=== PATIENT | female | born 1990 | race Caucasian/White ===

== ENCOUNTER → 2016-11-16 | Outpatient (REF) | LOC: ZLAB.WCH 16:32 | DX: Z02.89 Encounter for other administrative examinations (principal) ==

== ENCOUNTER → 2016-11-19 | Outpatient (CLI) | payer BC | LOC: COL.RAD 13:49 | DX: M25.552 Pain in left hip (principal); Z98.890 Other specified postprocedural states; R93.7 Abnormal findings on diagnostic imaging of other parts of musculoskeletal system; R68.89 Other general symptoms and signs | CPT/HCPCS: A9585; J3301; Q9967 ==

== ENCOUNTER → 2017-05-31 | Outpatient (REF) | LOC: WSOH 16:15 | DX: Z02.89 Encounter for other administrative examinations (principal) ==

== ENCOUNTER → 2019-06-22 | Outpatient (CLI) | payer BC | LOC: COL.RAD 08:00 | DX: M25.551 Pain in right hip (principal) | CPT/HCPCS: J3301; Q9967 ==

== ENCOUNTER 2019-07-20 08:00 | Inpatient (IN) | payer BC ==
[~2019-07-20] VITALS: Ht 175.3 cm; Wt 66.5 kg
--- NOTE | 2019-07-20 14:00 | NUR ---
PATIENT ARRIVED TO ROOM 349 VIA WHEELCHAIR. PATIENT SETTELED INTO ROOM.
[2019-07-20 14:08] VITALS: BP 100/60; PULSE 134; TEMP 99.4
[2019-07-20] MEDS ORDERED: BACTRIM DS 8001 TAB PO (15:02)
[2019-07-20] MEDS ORDERED: CEPHALEXIN500 M1 PO (15:02)
[2019-07-20] MEDS ORDERED: FLEXERIL5 MG PO (15:03)
[2019-07-20] MEDS ORDERED: NEURONTIN300 MG/CAP PO (15:04)
[2019-07-20] MEDS ORDERED: LOVENOX 4040 MG/0.4 SQ (15:04)
[2019-07-20] MEDS ORDERED: MOBIC15 MG PO (15:04)
[2019-07-20] MEDS ORDERED: WELLBUTRIN XL300 M1 PO (15:05)
[2019-07-20] MEDS ORDERED: TYLENOL 500MG500 MG PO (15:05)
[2019-07-20] MEDS ORDERED: ROXICODONE 55 MG/TAB PO (15:06)
[2019-07-20] MEDS ORDERED: MOTEGRITY2 MG PO (15:06)
[2019-07-20] MEDS ORDERED: ZYRTEC 10MG10 MG PO (15:07)
[2019-07-20] MEDS ORDERED: ADDERALL10 MG PO (15:07)
[2019-07-20] MEDS ORDERED: SENNA-LAX8.6 MG PO (15:08)
--- NOTE | 2019-07-20 16:00 | NUR ---
PATIENT ASSESSMENT COMPLETE. LEFT HIP REDDENED, WARM TO THE TOUCH AND SWOLLEN. GAUZE AND TEGADERM DRESSING IN PLACE AND IS CD&I. IV FLUIDS INFUSING TO RIGHT AC IV VIA PUMP. CALL LIGHT WITHIN REACH. FAMILY PRESENT AT THE BEDSIDE. PATIENT DENIES ANY NEEDS AT THIS TIME.
--- NOTE | 2019-07-20 19:30 | NUR ---
Pt. sitting up in bed at this time. Pt. is A&OX3, assessment complete. Pt. had reported SOB at shift change to day shift nurse. Pt. waiting to go to CT scan pending lab results. IV to rt. AC patent, IV fluids infusing per orders. Reddness, swelling, and warmth noted to lt. hip and thigh. Pt. has a dressing to lt. hip/groin area from previous procedure. Dressing is CDI. Pt. denies further needs, at this time. Call light within reach.
[2019-07-20 20:00] VITALS: BP 99/61; PULSE 98; TEMP 98.5
[2019-07-20 20:04] LABS: BASO % 0.5 % (0.0-2.0); EOS # 0.2 (0.0-0.7); EOS % 3.6 % (0-4.0); GRAN # 3.2 (1.4-6.5); GRAN % 54.3 % (42.2-75.2); HEMOGLOBIN 10.2 g/dl (12.5-16.0); LYMPH % 34.1 % (20.0-51.0); MEAN CELL VOLUME 96 fl (80.0-100.0); MEAN CORPUSCULAR HEMOGLOBIN 31 pg (27.0-31.0); MEAN CORPUSCULAR HGB CONC 33 g/dl (33.0-37.0); MEAN PLATELET VOLUME 9.5 fl (7.4-10.4); MONO # 0.4 (0.1-0.6); MONO % 6.8 % (1.7-9.3); PLATELET COUNT 518 K/mm3 (130-400); RED BLOOD COUNT 3.28 M/mm3 (4.10-5.30); REDCELL DISTRIBUTION WIDTH-CV 12.4 % (11.5-14.5)
[2019-07-20 20:08] LABS: PROTHROMBIN TIME 11.2 SECONDS (9.7-12.8)
[2019-07-20 20:11] LABS: PARTIAL THROMBOPLASTIN TIME 31.6 SECONDS (26.0-37.0)
[2019-07-20 20:14] LABS: HEMATOCRIT 31.4 % (37.0-47.0)
[2019-07-20 20:15] LABS: ALANINE AMINOTRANSFERASE 26 U/L (9-52); ALBUMIN 3.9 gm/dL (3.5-5.0); ALKALINE PHOSPHATASE 98 U/L (50-136); ANION GAP 8 mmol/L (7-16); AST,SGOT 20 U/L (15-37); BILIRUBIN,TOTAL 0.2 mg/dL (0.0-1.0); BLOOD UREA NITROGEN 14 mg/dL (7-17); C-REACTIVE PROTEIN 3.7 mg/dL (0.0-0.9); CALCIUM 8.4 mg/dL (8.4-10.2); CARBON DIOXIDE 28 mmol/L (22-30); CHLORIDE 103 mmol/L (98-107); CREATININE, serum 0.71 (0.52-1.25); GLUCOSE 92 mg/dL (74-106); MAGNESIUM 2.8 mg/dL (1.6-2.3); POTASSIUM 4.5 mmol/L (3.4-5.0); SODIUM 139 mmol/L (137-145); TOTAL PROTEIN 6.7 gm/dL (6.4-8.2)
[2019-07-20 20:24] LABS: TROPONIN-I < 0.012 ng/mL (0.000-0.035)
[2019-07-20 23:51] VITALS: BP 103/64; PULSE 90; TEMP 98.4
[2019-07-21] VITALS (13 sets, daily range): BP systolic 91–109; BP diastolic 54–69; PULSE 64–111; TEMP 97.6–98.5
[2019-07-21 01:58] LABS: BASO % 0.5 % (0.0-2.0); EOS # 0.2 (0.0-0.7); EOS % 3.6 % (0-4.0); GRAN # 3.2 (1.4-6.5); GRAN % 53.6 % (42.2-75.2); LYMPH % 33.3 % (20.0-51.0); MEAN CELL VOLUME 97 fl (80.0-100.0); MEAN CORPUSCULAR HGB CONC 32 g/dl (33.0-37.0); MONO # 0.5 (0.1-0.6); MONO % 8.3 % (1.7-9.3); PLATELET COUNT 454 K/mm3 (130-400); RED BLOOD COUNT 2.96 M/mm3 (4.10-5.30); REDCELL DISTRIBUTION WIDTH-CV 12.5 % (11.5-14.5)
[2019-07-21 01:59] LABS: HEMATOCRIT 28.6 % (37.0-47.0); MEAN CORPUSCULAR HEMOGLOBIN 30 pg (27.0-31.0)
[2019-07-21 02:10] LABS: C-REACTIVE PROTEIN 2.8 mg/dL (0.0-0.9)
[2019-07-21 02:16] LABS: ERYTHROCYTE SEDIMENTATION RATE 30 mm/hr (0-20)
[2019-07-21 02:20] LABS: TROPONIN-I 6 HR POST INITIAL < 0.012 ng/mL (0.000-0.034)
--- NOTE | 2019-07-21 06:20 | NUR ---
Vancomycin Initial Dosing Pharmacy Note Ordering provider: Halima Huerta Indication/duration: hip infection, possibly 7 days Relevant comorbidities: LABS: Crea= 0.71, est Crcl above 90 mL/min Recommendation: Will follow daily creatinine, and check trough level on 07/23/19. Loading dose: 1.5 grams Maintenance dose: 1.25 grams every 8 hours Trough goal: 15-20 ug/mL
--- NOTE | 2019-07-21 08:25 | NUR ---
Dr Ruiz notified of consult.
--- NOTE | 2019-07-21 09:00 | NUR ---
Patient alert and oriented, answers questions appropriately. See assessment. Left hip incision with edges well approximated, redness and warmth noted. Neuros intact to LLE, pulses palpable. FWB. No c/o at this time.
--- NOTE | 2019-07-21 09:31 | NUR ---
SW met with the patient to discuss discharge plan. The patient lives in [place] with her , Saeed ([phone]). She reports needing some assistance with tranferring onto her showerchair, but that her assists her with this. She has a walker, crutches, and wheelchair. The patient's PCP was Dr. Reveles, but she will be switching to Dr. Kathryn Mark in August. She receives her medications at [facility] and she reports no difficulties obtaining her meds. The patient does not have advanced directives completed, but she was interested in obtaining a form for DPOA-HC. SW provided. The patient plans to return home with her upon discharge. No other identified needs at this time.
--- NOTE | 2019-07-21 11:47 | NUR ---
First visit from the social welfare clerk. No needs right now.
--- NOTE | 2019-07-21 17:54 | NUR ---
Patient returns from I/D, assessment unchanged except aquacel to left hip incision, hemovac to left hip with small amount of serosanquinous drainage noted. No c/o at this time.
--- NOTE | 2019-07-21 19:27 | NUR ---
Pt resting with HOB elevated. Family at bedside. No distress noted. Pt denies pain at this time. Respirations even and unlabored. Lungs clear. Abdomen soft, nontender. BS+. VSS. Pt ambulates in room with crutches. Well tolerated. IVF infusing to R AC IV site. Taking PO fluids adequately-saline locked. Pt still receiving multiple IV Abx. Pt requests home medications- especially bowel medications. Pt states she has IBS and gets constipated easily. She states she has not had a BM for 5 days. L hip dressing clean dry and intact- aquacell. Drain compressed. Scant amount of bloody drainage noted. No further needs noted. Will continue to monitor.
--- NOTE | 2019-07-21 20:23 | NUR ---
Tayler NAIR called to address patients home medications. Orders to restart bowel medications received.
--- NOTE | 2019-07-22 01:30 | NUR ---
Pt reports no BM after HS bowel meds. Pt requested suppository- given.
--- NOTE | 2019-07-22 02:16 | NUR ---
Pt called stating her dressing was "peeling" after being up to the bathroom. Reinforced with a tegaderm.
[2019-07-22 05:13] VITALS: BP 99/62; PULSE 95; TEMP 97.7
--- NOTE | 2019-07-22 05:40 | NUR ---
Pt reports that PRN Dilaudid didn't "do much". Pt reports L leg cramping/"nerve" pain 07/25. Pt reports she takes Neurontin and Flexiril at home, but "those won't work" Tayler NAIR contacted. Orders received to increase PRN pain medication dose.
--- NOTE | 2019-07-22 06:30 | NUR ---
Pt resting this AM. Pt reports that PRN Dilaudid "finally made it calm down", in reference to her pain. No needs noted.
[2019-07-22 07:37] LABS: C-REACTIVE PROTEIN 1.9 mg/dL (0.0-0.9); CALCIUM 8.4 mg/dL (8.4-10.2); CREATININE, serum 0.51 (0.52-1.25); POTASSIUM 4.5 mmol/L (3.4-5.0)
[2019-07-22 07:56] VITALS: BP 98/70; PULSE 100; TEMP 97.8
--- NOTE | 2019-07-22 09:00 | NUR ---
Patient alert and oriented, answers questions appropriately. See assessment. LLE with aquacel to incision, CDI. Drain to LLE with scant amount of serosanguinous drainage ntoed. Neuros intact to LLE, pulses palpable. No c/o at this time.
[2019-07-22 09:01] LABS: BASO % 0.4 % (0.0-2.0); EOS # 0.1 (0.0-0.7); GRAN % 73.6 % (42.2-75.2); LYMPH # 1.6 (1.2-3.4); LYMPH % 19.6 % (20.0-51.0); MEAN CELL VOLUME 95 fl (80.0-100.0); MEAN CORPUSCULAR HGB CONC 33 g/dl (33.0-37.0); MONO # 0.4 (0.1-0.6); MONO % 4.9 % (1.7-9.3); RED BLOOD COUNT 3.56 M/mm3 (4.10-5.30); REDCELL DISTRIBUTION WIDTH-CV 12.1 % (11.5-14.5)
[2019-07-22 09:28] LABS: HEMATOCRIT 33.7 % (37.0-47.0); MEAN CORPUSCULAR HEMOGLOBIN 31 pg (27.0-31.0); PLATELET COUNT 598 K/mm3 (130-400)
[2019-07-22 09:51] LABS: ERYTHROCYTE SEDIMENTATION RATE 29 mm/hr (0-20)
[2019-07-22 11:35] VITALS: BP 104/68; PULSE 113; TEMP 97.9
[2019-07-22 15:31] VITALS: BP 95/54; PULSE 105; TEMP 98
[2019-07-22 20:00] VITALS: BP 109/71; PULSE 93; TEMP 97.8
[2019-07-22 23:51] VITALS: BP 99/63; PULSE 96; TEMP 98
[2019-07-23 03:54] VITALS: BP 99/62; PULSE 84; TEMP 97.7
--- NOTE | 2019-07-23 05:00 | NUR ---
RESTING QUIETLY. PT HAD OXYCODONE AND FLEXERIL FOR PAIN AT [facility] ICE IN USE. DRESSINGS TO LEFT HIP INTACT.
[2019-07-23 07:06] LABS: BASO % 0.7 % (0.0-2.0); EOS # 0.2 (0.0-0.7); EOS % 3.5 % (0-4.0); GRAN # 2.7 (1.4-6.5); GRAN % 46.5 % (42.2-75.2); LYMPH # 2.4 (1.2-3.4); LYMPH % 41.4 % (20.0-51.0); MEAN CELL VOLUME 95 fl (80.0-100.0); MEAN CORPUSCULAR HGB CONC 33 g/dl (33.0-37.0); MONO # 0.4 (0.1-0.6); MONO % 6.7 % (1.7-9.3); RED BLOOD COUNT 3.01 M/mm3 (4.10-5.30); REDCELL DISTRIBUTION WIDTH-CV 12.7 % (11.5-14.5)
[2019-07-23 07:13] LABS: HEMATOCRIT 28.5 % (37.0-47.0); HEMOGLOBIN 9.3 g/dl (12.5-16.0); MEAN CORPUSCULAR HEMOGLOBIN 31 pg (27.0-31.0); PLATELET COUNT 453 K/mm3 (130-400)
--- NOTE | 2019-07-23 07:42 | NUR ---
Left leg incision with dressing clean, dry, and intact. No redness or drainage at site. Edema noted to left hip and thigh. Patient complains of spasms and nerve pain in left leg that radiate to left foot. Patient able to reposition self in bed. Denies issues with voiding. Explains that she is passing gas but still has not had a bowel movement and requests MOM and Colace.
[2019-07-23 08:21] VITALS: BP 93/60; PULSE 83; TEMP 98.1
[2019-07-23 11:38] VITALS: BP 104/71; PULSE 98; TEMP 98.4
--- NOTE | 2019-07-23 14:58 | NUR ---
SITTING UP IN BED VISITING WITH FAMILY AND FRIENDS. PATIENT VOICES NO COMPLAINTS OR CONCERNS. INCISION WITH DRESSING CLEAN, DRY, AND INTACT. SKIN PINK AND WARM. NO DISCHARGE NOTED FROM SITE. MILD EDEMA TO LEFT HIP/THIGH AREA.
[2019-07-23 16:35] VITALS: BP 98/62; PULSE 110; TEMP 98.7
--- NOTE | 2019-07-23 18:18 | NUR ---
8540 Patient complains of feeling a little nauseated. Explained to the patient that she does have orders in system for IV Zofran. Explained that we would not be able to give the Zofran concurrently with the Zosyn. Patient says that she will wait until Zosyn is completed and see how she feels to see if she would like the Zofran or not. Per patient request, provided Sprite and cranberry juice. Patient denies further needs at this time.
[2019-07-23 19:48] VITALS: BP 99/58; PULSE 102; TEMP 98.1
[2019-07-24 00:26] VITALS: BP 98/68; PULSE 89; TEMP 97.6
[2019-07-24 03:58] VITALS: BP 95/56; PULSE 91; TEMP 97.9
[2019-07-24 06:25] LABS: MEAN CELL VOLUME 95 fl (80.0-100.0); MEAN CORPUSCULAR HGB CONC 32 g/dl (33.0-37.0); PLATELET COUNT 521 K/mm3 (130-400); RED BLOOD COUNT 3.17 M/mm3 (4.10-5.30); REDCELL DISTRIBUTION WIDTH-CV 12.5 % (11.5-14.5)
[2019-07-24 06:29] LABS: HEMATOCRIT 30.1 % (37.0-47.0); HEMOGLOBIN 9.6 g/dl (12.5-16.0); MEAN CORPUSCULAR HEMOGLOBIN 30 pg (27.0-31.0)
[2019-07-24 06:34] LABS: CALCIUM 8.2 mg/dL (8.4-10.2); CREATININE, serum 0.7 (0.52-1.25); POTASSIUM 4.1 mmol/L (3.4-5.0)
[2019-07-24 07:34] VITALS: BP 97/59; PULSE 84; TEMP 97.5
--- NOTE | 2019-07-24 07:39 | NUR ---
Alert and oriented. Explains that she has been having spasms in left leg since she awoke this morning, was provided pain medication by previous shift. At this time rates pain 3/10. Left hip incision with Aquacell dressing clean, dry, and intact. No redness or drainage noted. Skin warm and pink. Mild swelling at site. Patient hopes to be discharged home today.
--- NOTE | 2019-07-24 10:00 | NUR ---
SW rounded with the hospitalist. There were no transition social worker matters discussed at this time. JALYN will continue to follow.
--- NOTE | 2019-07-24 10:48 | NUR ---
Sitting up in bed eating muffin with spouse at bedside. Patient explains that PT came by and they are going to come back when her IV antibiotics are completed to ambulate. Patient explains that she is doing good at this time and voices no further needs.
[2019-07-24 11:42] VITALS: BP 102/63; PULSE 105; TEMP 98
--- NOTE | 2019-07-24 12:04 | NUR ---
Rates pain in left hip 11/24. Spouse in room visiting with the patient. Patient expresses that she is anxious for the culture results to see if she will be able to go home or not. Provided ice per patient request for her cranberry juice. Patient denies further needs.
--- NOTE | 2019-07-24 12:29 | NUR ---
Follow up visit from the denier control operator. No needs right now.
--- NOTE | 2019-07-24 15:07 | NUR ---
Patient lying in bed resting with eyes closed. Respirations even and unlabored. No signs of discomfort. Opens eyes and follows commands to scan ID badge to hang antibiotics. Grandmother in room with the patient. Side rails up times two, call light in reach.
[2019-07-24] MEDS ORDERED: AMOXICILLIN 8751 TAB PO (15:11)
--- NOTE | 2019-07-24 15:47 | NUR ---
1540 Patient contacts nurses station and reports she is having pain and would like her pain medication. Presented with Flexeril 10mg and OOxycodone 10mg and patient says that she is having intense pain at this time, 8/10, spasms that are in left hip radiating into foot. Patient says that she knows that the oral medication takes about 40 minutes to work so she would like to get Dilaudid at this time for the immediate pain that she is having. Administered Dilaudid 0.5mg/0.5mL IV, then flushed with saline. Also administered the Flexeril 10mg PO. Did not administer the Oxycodone 10mg at this time. Patient tolerates without difficulty. 1550 Patient rates pain 4-5/10 in left leg. Patient says that she feels better and it no longer feels as though someone is ripping her leg apart. Patient denies further needs at this time.
--- NOTE | 2019-07-24 17:03 | NUR ---
Patient and spouse request that prescriptions for Augmentin and Lyrica get called in to [facility] here in [place] as they will not be able to make it to the [facility] before it closes as they will have to go by [facility] first. Spoke with Abby at [facility] pharmacy, , and provided all information for prescriptions. Contacted [facility] and explained that we would need to cancel prescriptions that were previously called in due to the patient not able to get there before they close.
--- NOTE | 2019-07-24 17:24 | NUR ---
1718 Patient spouse here to escort patient home. Patient and spouse collected all personal belongings. Assisted patient to vehicle via wheelchair. Patient verbalizes understanding to all discharge instructions and denies further needs at this time.
== END 2019-07-24 17:30 | disposition home or self-care (01) | DRG 857 ==
LOC: SURG 08:00
PROVIDERS: Nurse Practitioner Family; Physician Assistant; ADMIT Orthopaedic Surgery Sports Medicine
PROC: 0JDM0ZZ Extraction of Left Upper Leg Subcutaneous Tissue and Fascia, Open Approach (ICD-10-PCS; principal; 2019-07-21 15:30)
DX: T81.40XA Infection following a procedure, unspecified, initial encounter (principal); T81.31XA Disruption of external operation (surgical) wound, not elsewhere classified, initial encounter; L02.416 Cutaneous abscess of left lower limb; T81.44XA Sepsis following a procedure, initial encounter; Y83.8 Other surgical procedures as the cause of abnormal reaction of the patient, or of later complication, without mention of misadventure at the time of the procedure; F90.9 Attention-deficit hyperactivity disorder, unspecified type; R06.00 Dyspnea, unspecified; D64.9 Anemia, unspecified; D47.3 Essential (hemorrhagic) thrombocythemia; G62.9 Polyneuropathy, unspecified; B95.61 Methicillin susceptible Staphylococcus aureus infection as the cause of diseases classified elsewhere; B95.2 Enterococcus as the cause of diseases classified elsewhere
CPT/HCPCS: 99223; 99231-AI; 99232-AI; 99233-AI; J0690; J1100; J1170; J1885; J2250; J2405; J2543; J2704; J2795; J3010; J3370; J7030; J7050; Q9967

== ENCOUNTER 2019-07-27 11:49 | Outpatient (CLI) | payer BC ==
[~2019-07-27] VITALS: Ht 175.3 cm; Wt 65.0 kg
[~2019-07-27 11:49] MED LIST: ADDERALL10 MG PO; AMOXICILLIN 8751 TAB PO; BACTRIM DS 8001 TAB PO; CEPHALEXIN500 M1 PO; FLEXERIL5 MG PO; LOVENOX 4040 MG/0.4 SQ; MOBIC15 MG PO; MOTEGRITY2 MG PO; NEURONTIN300 MG/CAP PO; ROXICODONE 55 MG/TAB PO; SENNA-LAX8.6 MG PO; TYLENOL 500MG500 MG PO; WELLBUTRIN XL300 M1 PO; ZYRTEC 10MG10 MG PO
[2019-07-27 15:05] VITALS: BP 112/65; PULSE 86; TEMP 97.9
== END 2019-07-27 15:31 | disposition home or self-care (01) ==
LOC: EUO 11:49
DX: A49.01 Methicillin susceptible Staphylococcus aureus infection, unspecified site (principal); T81.49XA Infection following a procedure, other surgical site, initial encounter; Z95.828 Presence of other vascular implants and grafts
CPT/HCPCS: C1751; J0878

== ENCOUNTER 2019-08-31 08:00 | Outpatient (RCR) | payer BC ==
--- NOTE | 2019-08-03 12:45 | NUR ---
Patient in the express unit. Patient was advised to come to the express unit by infectious disease physician for PICC evaluation. According to the patient and her PICC dressing was changed on Wednesday by [facility] nurse. Following this dressing change, she has experienced increased drainage on the chlorhexidine patch and concerned. With sterile technique right upper arm PICC dressing change done with insertion site cleansed with ChloraPrep 1, chlorhexidine impregnated disc applied, skin prep, StatLock, and Tegaderm applied. Both catheter changed and flushed with 10 mL normal saline with good blood return noted very fine prickly heat rash noted under Tegaderm. No further drainage noted. Probably heat rash associated with her Raimundo wrap. Also, potential chlorhexidine prep had not dried completely during the dressing change. Also could be a reaction to the difference StatLock under the dressing. Patient prefers to have for cares for PICC dressings to be done in the express unit. Arrangements made with express unit staff for weekly care nurse in the express unit. Contacted Aileen, and Dr. Mcintyre's office, and explained appearance of PICC and plan for weekly clears and express. patient voiced understanding of plan.
[2019-08-03 13:49] VITALS: BP 93/59; PULSE 94; TEMP 98
[2019-08-09 08:43] VITALS: BP 100/66; PULSE 92; TEMP 98
--- NOTE | 2019-08-09 08:45 | NUR ---
Here for cares. With sterile technique right upper arm PICC dressing change done with insertion site cleansed with ChloraPrep 1, chlorhexidine impregnated disc applied, skin prep, StatLock, and Tegaderm applied. No .signs or symptoms of IV complications noted. No concerns voiced regarding PICC. Patient is making arrangements for follow-up appointment with surgeon. Advised to contact Dr. Mcintyre's office for assistance and/or surgeon's office here in [place]. Patient voiced understanding of instructions.
[2019-08-09 08:50] LABS: BASO % 0.8 % (0.0-2.0); EOS # 0.2 (0.0-0.7); EOS % 3.3 % (0-4.0); GRAN # 2.7 (1.4-6.5); GRAN % 55.8 % (42.2-75.2); HEMOGLOBIN 11.5 g/dl (12.5-16.0); LYMPH # 1.5 (1.2-3.4); LYMPH % 30.4 % (20.0-51.0); MEAN CELL VOLUME 94 fl (80.0-100.0); MEAN CORPUSCULAR HEMOGLOBIN 31 pg (27.0-31.0); MEAN CORPUSCULAR HGB CONC 33 g/dl (33.0-37.0); MONO # 0.5 (0.1-0.6); MONO % 9.3 % (1.7-9.3); PLATELET COUNT 165 K/mm3 (130-400); RED BLOOD COUNT 3.71 M/mm3 (4.10-5.30); REDCELL DISTRIBUTION WIDTH-CV 12.6 % (11.5-14.5)
[2019-08-09 08:51] LABS: HEMATOCRIT 34.7 % (37.0-47.0)
[2019-08-09 09:09] LABS: ALANINE AMINOTRANSFERASE 19 U/L (9-52); ALBUMIN 3.9 gm/dL (3.5-5.0); ALKALINE PHOSPHATASE 81 U/L (50-136); ANION GAP 8 mmol/L (7-16); AST,SGOT 20 U/L (15-37); BILIRUBIN,TOTAL 0.3 mg/dL (0.0-1.0); BLOOD UREA NITROGEN 14 mg/dL (7-17); CALCIUM 8.7 mg/dL (8.4-10.2); CARBON DIOXIDE 27 mmol/L (22-30); CHLORIDE 101 mmol/L (98-107); CREATININE, serum 0.55 (0.52-1.25); GLUCOSE 83 mg/dL (74-106); POTASSIUM 4.5 mmol/L (3.4-5.0); SODIUM 136 mmol/L (137-145); TOTAL PROTEIN 6.1 gm/dL (6.4-8.2)
[2019-08-09 09:12] LABS: VANCOMYCIN TROUGH* 8.11 ug/mL (7.00-20.00)
[2019-08-09 09:13] LABS: ERYTHROCYTE SEDIMENTATION RATE 4 mm/hr (0-20)
[2019-08-09 09:19] LABS: C-REACTIVE PROTEIN < 0.5 mg/dL (0.0-0.9)
[2019-08-11 08:14] VITALS: BP 98/62; PULSE 89; TEMP 97.9
--- NOTE | 2019-08-14 08:15 | NUR ---
Here for cares. with sterile technique right upper arm PICC dressing change done with insertion site cleansed with chloraprep x 1, chlorhexidine impregnated disk applied, skin prep, stat lock, and tegaderm applied. no signs or symptoms of IV complications noted. no concerns voiced. re-wrapped with nidhi to protect catheter. to return as scheduled for cares. voiced understanding of instructions.
[2019-08-14 08:53] LABS: BASO % 0.4 % (0.0-2.0); EOS # 0.3 (0.0-0.7); EOS % 6.1 % (0-4.0); HEMOGLOBIN 11.7 g/dl (12.5-16.0); LYMPH # 1.8 (1.2-3.4); LYMPH % 31.9 % (20.0-51.0); MEAN CELL VOLUME 94 fl (80.0-100.0); MEAN CORPUSCULAR HEMOGLOBIN 30 pg (27.0-31.0); MEAN CORPUSCULAR HGB CONC 33 g/dl (33.0-37.0); MEAN PLATELET VOLUME 10.1 fl (7.4-10.4); MONO # 0.5 (0.1-0.6); MONO % 8.4 % (1.7-9.3); PLATELET COUNT 177 K/mm3 (130-400); RED BLOOD COUNT 3.85 M/mm3 (4.10-5.30); REDCELL DISTRIBUTION WIDTH-CV 12.4 % (11.5-14.5)
[2019-08-14 08:55] VITALS: BP 99/65; PULSE 80; TEMP 97.7
[2019-08-14 09:12] LABS: ALANINE AMINOTRANSFERASE 10 U/L (9-52); ALBUMIN 3.7 gm/dL (3.5-5.0); ALKALINE PHOSPHATASE 85 U/L (50-136); ANION GAP 9 mmol/L (7-16); AST,SGOT 20 U/L (15-37); BILIRUBIN,TOTAL 0.2 mg/dL (0.0-1.0); BLOOD UREA NITROGEN 13 mg/dL (7-17); CALCIUM 8.5 mg/dL (8.4-10.2); CARBON DIOXIDE 27 mmol/L (22-30); CHLORIDE 104 mmol/L (98-107); CREATININE, serum 0.56 (0.52-1.25); GLUCOSE 97 mg/dL (74-106); POTASSIUM 4.3 mmol/L (3.4-5.0); SODIUM 140 mmol/L (137-145); TOTAL PROTEIN 6.1 gm/dL (6.4-8.2)
[2019-08-14 09:17] LABS: VANCOMYCIN TROUGH* 7.55 ug/mL (7.00-20.00)
[2019-08-14 09:30] LABS: ERYTHROCYTE SEDIMENTATION RATE 1 mm/hr (0-20)
[2019-08-14 09:38] LABS: C-REACTIVE PROTEIN < 0.5 mg/dL (0.0-0.9)
[2019-08-17 08:15] VITALS: BP 95/46; PULSE 88; TEMP 98
[2019-08-17 08:40] LABS: HEMOGLOBIN 12.2 g/dl (12.5-16.0); MEAN CELL VOLUME 91 fl (80.0-100.0); MEAN CORPUSCULAR HEMOGLOBIN 31 pg (27.0-31.0); MEAN CORPUSCULAR HGB CONC 34 g/dl (33.0-37.0); MEAN PLATELET VOLUME 10.1 fl (7.4-10.4); PLATELET COUNT 197 K/mm3 (130-400); RED BLOOD COUNT 3.99 M/mm3 (4.10-5.30)
[2019-08-17 08:50] LABS: ALANINE AMINOTRANSFERASE 17 U/L (9-52); ALKALINE PHOSPHATASE 80 U/L (50-136); ANION GAP 8 mmol/L (7-16); AST,SGOT 23 U/L (15-37); BILIRUBIN,TOTAL 0.4 mg/dL (0.0-1.0); BLOOD UREA NITROGEN 14 mg/dL (7-17); CALCIUM 8.5 mg/dL (8.4-10.2); CARBON DIOXIDE 26 mmol/L (22-30); CHLORIDE 102 mmol/L (98-107); CREATININE, serum 0.58 (0.52-1.25); GLUCOSE 87 mg/dL (74-106); HEMATOCRIT 36.4 % (37.0-47.0); POTASSIUM 4.2 mmol/L (3.4-5.0); SODIUM 136 mmol/L (137-145); TOTAL PROTEIN 6.5 gm/dL (6.4-8.2)
[2019-08-17 08:53] LABS: C-REACTIVE PROTEIN < 0.5 mg/dL (0.0-0.9); VANCOMYCIN TROUGH* 12.86 ug/mL (7.00-20.00)
[2019-08-17 09:18] LABS: ERYTHROCYTE SEDIMENTATION RATE 4 mm/hr (0-20)
[2019-08-17 09:47] LABS: BAND 1 % (0-10); EOSINOPHIL 4 % (0-4); LYMPHOCYTE 24 % (20.0-51.0); NEUTROPHILS 66 % (42.0-75.2)
[2019-08-17 09:48] LABS: PLATELET ESTIMATE NORMAL (NORMAL)
[2019-08-21 09:13] VITALS: BP 95/59; PULSE 86; TEMP 97.9
[2019-08-21 09:23] LABS: BASO % 0.8 % (0.0-2.0); EOS # 0.4 (0.0-0.7); EOS % 8.6 % (0-4.0); GRAN # 2.5 (1.4-6.5); GRAN % 51.5 % (42.2-75.2); HEMATOCRIT 39.4 % (37.0-47.0); HEMOGLOBIN 12.9 g/dl (12.5-16.0); LYMPH # 1.4 (1.2-3.4); LYMPH % 29.1 % (20.0-51.0); MEAN CELL VOLUME 91 fl (80.0-100.0); MEAN CORPUSCULAR HEMOGLOBIN 30 pg (27.0-31.0); MEAN CORPUSCULAR HGB CONC 33 g/dl (33.0-37.0); MEAN PLATELET VOLUME 9.6 fl (7.4-10.4); MONO # 0.5 (0.1-0.6); MONO % 9.8 % (1.7-9.3); PLATELET COUNT 247 K/mm3 (130-400); RED BLOOD COUNT 4.33 M/mm3 (4.10-5.30)
--- NOTE | 2019-08-21 09:30 | NUR ---
PICC intact right upper arm with sterile dressing change done with insertion site cleansed with chloraprep x 1, chlorhexidine impregnated disk applied, skin prep, stat lock, and tegaderm applied. no signs or symptoms of IV complications noted. no concerns voiced. will continue to monitor. to return to [facility] as directed. voiced understanding of instructions.
[2019-08-21 09:34] LABS: ALANINE AMINOTRANSFERASE 15 U/L (9-52); ALBUMIN 4.3 gm/dL (3.5-5.0); ALKALINE PHOSPHATASE 86 U/L (50-136); ANION GAP 11 mmol/L (7-16); AST,SGOT 22 U/L (15-37); BILIRUBIN,TOTAL 0.4 mg/dL (0.0-1.0); BLOOD UREA NITROGEN 12 mg/dL (7-17); C-REACTIVE PROTEIN < 0.5 mg/dL (0.0-0.9); CARBON DIOXIDE 26 mmol/L (22-30); CHLORIDE 102 mmol/L (98-107); CREATININE, serum 0.56 (0.52-1.25); GLUCOSE 89 mg/dL (74-106); POTASSIUM 3.9 mmol/L (3.4-5.0); SODIUM 139 mmol/L (137-145)
[2019-08-21 10:11] LABS: ERYTHROCYTE SEDIMENTATION RATE 1 mm/hr (0-20)
[2019-08-28 08:00] VITALS: BP 97/70; PULSE 78; TEMP 97.4
--- NOTE | 2019-08-28 08:00 | NUR ---
here for PICC cares. With sterile technique right upper arm PICC dressing change done with insertion site cleansed with ChloraPrep 1, chlorhexidine impregnated disc applied, skin prep, StatLock, and Tegaderm applied. No signs or symptoms of IV complications noted. No concerns voiced. Patient to continue with cares in the express unit. Patient voiced understanding of instructions.
[2019-08-28 08:52] LABS: BASO % 0.6 % (0.0-2.0); EOS # 0.4 (0.0-0.7); GRAN # 3.6 (1.4-6.5); GRAN % 58.4 % (42.2-75.2); LYMPH # 1.6 (1.2-3.4); LYMPH % 25.7 % (20.0-51.0); MEAN CELL VOLUME 91 fl (80.0-100.0); MEAN CORPUSCULAR HEMOGLOBIN 30 pg (27.0-31.0); MEAN CORPUSCULAR HGB CONC 33 g/dl (33.0-37.0); MEAN PLATELET VOLUME 10.6 fl (7.4-10.4); MONO # 0.5 (0.1-0.6); MONO % 8.1 % (1.7-9.3); PLATELET COUNT 265 K/mm3 (130-400); RED BLOOD COUNT 4.39 M/mm3 (4.10-5.30)
[2019-08-28 09:08] LABS: ALANINE AMINOTRANSFERASE 16 U/L (9-52); ALBUMIN 4.1 gm/dL (3.5-5.0); ALKALINE PHOSPHATASE 79 U/L (50-136); AST,SGOT 19 U/L (15-37); BILIRUBIN,TOTAL 0.4 mg/dL (0.0-1.0); BLOOD UREA NITROGEN 13 mg/dL (7-17); CALCIUM 8.9 mg/dL (8.4-10.2); CARBON DIOXIDE 24 mmol/L (22-30); CHLORIDE 104 mmol/L (98-107); CREATININE, serum 0.59 (0.52-1.25); GLUCOSE 86 mg/dL (74-106); TOTAL PROTEIN 6.5 gm/dL (6.4-8.2)
[2019-08-28 09:10] LABS: C-REACTIVE PROTEIN < 0.5 mg/dL (0.0-0.9)
[2019-08-28 09:23] LABS: ANION GAP 9 mmol/L (7-16); SODIUM 137 mmol/L (137-145)
[2019-08-28 09:25] LABS: VANCOMYCIN TROUGH* 9.86 ug/mL (7.00-20.00)
[2019-08-28 09:33] LABS: ERYTHROCYTE SEDIMENTATION RATE 2 mm/hr (0-20)
[~2019-08-31] VITALS: Ht 175.3 cm; Wt 64.0 kg
[2019-08-31 08:20] VITALS: BP 103/67; PULSE 72; TEMP 97.9
--- NOTE | 2019-08-31 08:40 | NUR ---
here for cares. With sterile technique right upper arm PICC dressing change done with insertion site cleansed with ChloraPrep 1, at the time this nurse thought she had applied bed impregnated disc, skin prep, StatLock, and Tegaderm applied. No signs or symptoms of IV complications noted. Patient has a doctor appointment with infectious disease today. Patient has no concerns. Arm wrapped with Raimundo to protect catheter.
[2019-08-31 09:54] VITALS: BP 103/67; PULSE 82; TEMP 97.9
[2019-08-31 13:00] VITALS: BP 102/67; PULSE 64
--- NOTE | 2019-08-31 13:30 | NUR ---
PT returned to express unit for removal of PICC line. Dee ARREOLA performed PICC removal with no problem (please see her documentation). Prior to departure, pt had waited 26 minutes after removal with no bleeding, hematoma formation or any other concerns. she departed ambulatory with a crutch, with written dc instructions regarding return precautions such as persistent bleeding, signs of infections, sob, swelling to arm neck face etc. pt verbalized understanding. no concerns expressed at time of departure.
== END 2019-08-31 13:20 | disposition home or self-care (01) ==
LOC: EUO 08:00
PROVIDERS: Internal Medicine Infectious Disease; Nurse Practitioner
DX: A49.1 Streptococcal infection, unspecified site (principal); A49.01 Methicillin susceptible Staphylococcus aureus infection, unspecified site; T81.49XA Infection following a procedure, other surgical site, initial encounter; T14.8XXA Other injury of unspecified body region, initial encounter; L02.91 Cutaneous abscess, unspecified